=== PATIENT | female | born 2000 | race Caucasian/White ===

== ENCOUNTER 2021-10-31 12:45 | Outpatient (CLI) | payer BC, SELFPAY ==
--- NOTE | ~2021-10-31 | MR_ITS ---
EXAMINATION: MR brain/brain stem wo/w con EXAM DATE: 10/31/2021 13:41 INDICATION: G40.909 - Epilepsy, unspecified, not intractable, without... TECHNIQUE: Magnetic resonance imaging (MRI) of the brain/brain stem obtained without contrast. Sagit nuzhat T1, axial diffusion, gradient echo (T2*), T1, T2, FLAIR sequences obtained. Seizure protocol was utilized including high-resolution coronal images through the hippocampi. Patient was then injected with 15 cc intravenous Multihance contrast. Axial and coronal postcontrast T1 weighted sequences obt ained. There is no prior study for comparison. FINDINGS: The hippocampi are symmetric and are without signal abnormality identified. There are no g ray matter heterotopias identified or evidence of cortical dysplasia. There is a fluid signal intensity circumscribed ovoid region in the right pterygopalatine fossa measu ring 1.5 x 1.9 does not demonstrate any restricted diffusion or enhancement. Could be a mucous retent ion cyst in low-lying sphenoid sinus, but there is possible sliver of fluid signal extending from thi s to the medial aspect of the right middle cranial fossa on the axial T2-weighted sequence; Encephalo faith not excludable. Consider CT facial bone examination without contrast. There are no areas of restricted diffusion to suggest acute infarction. There is no acute hemorrhage seen on the T2*, a hemosiderin sensitive sequence. No intraparenchymal brain mass. The ventricles a re normal in size. There are no extra-axial collections. Flow voids are seen in the cerebral arteri es on the T2-weighted sequences consistent with their expected patency. The orbits are unremarkable. Soft tissue is unremarkable. There are no areas of abnormal enhancement on the postcontrast image s. IMPRESSION: 1. Incidental cystic region in right pterygopalatine fossa, could be mucous retention cyst in low-ly ing sphenoid sinus but encephalocele from middle cranial fossa not excludable. Recommend facial bone CT without contrast. 2. Otherwise unremarkable brain MRI exam. Reviewed, dictated and finalized at location [facility] [facility] IMPRESSION: 1. Incidental cystic region in right pterygopalatine fossa, could be mucous re tention cyst in low-lying sphenoid sinus but encephalocele from middle cranial fossa not excludable. Recommend facial bone CT without contrast. 2. Otherwise unremarkable brain MRI exam.
[2021-10-31 13:15] LABS: Estimated Glomerular Filt Rate > 60
== END 2021-10-31 12:46 | disposition home or self-care (01) ==
LOC: ANHIMG 12:50
PROVIDERS: PCP Family Medicine; Visit Provider Psychiatry & Neurology Neurology
DX: G40.909 Epilepsy, unspecified, not intractable, without status epilepticus (principal)
CPT/HCPCS: 70553; A9577

== ENCOUNTER 2021-11-06 10:56 | Outpatient (CLI) | payer BC, SELFPAY ==
--- NOTE | 2021-11-07 10:20 | WPDNEUROLOGY ---
Neurology EEG Report General Information Date of Study: 11/06/21 TEST eeg DIAGNOSIS seizure disorder CONDITION OF RECORDING awake drowsy and sleep EEG NUMBER [id number] CLINICAL HISTORY patient reported she started having episodes of hands and feet twitching that will last for several seconds patient has been mostly controlled up until about the last year seems to be happening more frequently EEG DESCRIPTION basic resting occipital frequency consists of large amount of medium voltage 8 to 9 hertz per 2nd alpha posteriorly admixed with low-voltage 15 to 18 hertz per 2nd beta activity. intermittently. Bilateral symmetrical sleep activity seen during sleep with normal and symmetrical sleep spindles .photic stimulation produced normal drive. Hyperventilation not done. Non paroxysmal. Nonfocal. Nonlateralizing. IMPRESSION Normal record
== END 2021-11-06 10:57 | disposition home or self-care (01) ==
LOC: ANHNEURO 11:00
PROVIDERS: PCP Family Medicine; Visit Provider Psychiatry & Neurology Neurology
DX: G40.909 Epilepsy, unspecified, not intractable, without status epilepticus (principal)
CPT/HCPCS: 95816